=== PATIENT | male | born 1965 | race Hispanic/Latino ===

== ENCOUNTER 2017-08-20 06:16 | Day surgery (SDC) | payer OTHER ==
[2017-08-20 06:34] VITALS: BMI 33.0
[2017-08-20] MEDS ORDERED: Lactated Ringer's 1,000 ML IV ONE (07:10)
[2017-08-20] MEDS ORDERED: Lidocaine 2% Jelly (Uro-Jet) ONE (07:13)
[2017-08-20] MEDS ORDERED: Lidocaine 1% Inj (20ml) ONE (07:13)
[2017-08-20] MEDS ORDERED: Sodium Chloride 0.9% 20 ML IV ONE (07:13)
[2017-08-20] MEDS ORDERED: EPINEPHrine 1 mg/ml (1:1000) Inj ONE (07:13)
[2017-08-20] MEDS ORDERED: Lidocaine 2% Jelly (5 ml) TOP ONE (07:14)
--- NOTE | 2017-08-20 07:14 | CP.SDSHP ---
Same Day Surgery H & P - History Proposed Procedure: Flexible bronchoscopy - Previous Medical/Surgical History Cardiac: Hypertension Pulmonary: Smoking (former), Dyspnea, Other (ILD) Endocrine/Metabolic: Other (Low testosterone) Pain: 0. No Pain Previous Surgical History: Tonsillectomy - Allergies Allergies: Allergies No Known Allergies Allergy (Verified 05/06/14 22:00) - Physical Exam Vital Signs: Vital Signs 08/20/17 08/20/17 06:49 06:51 Temperature 98.9 F Pulse Rate 87 87 Respiratory 20 Rate Blood Pressure 151/83 H O2 Sat by Pulse 97 Oximetry Mental Status: Alert & Oriented x3 Neuro: WNL Heart: WNL Lungs: Other (diminished breath sounds) GI: Other (ventral hernia) - Impression Pt. Evaluated Today:Candidate for Anesthesia & Procedure: Yes - Date & Time Date: 08/20/17 Time: 07:15 Short Stay Discharge - Short Stay Discharge Admitting Diagnosis/Reason for Visit: J84.9 Disposition: HOME/ ROUTINE Referrals: FAMILY PROVIDER,NO [Primary Care Provider] -
[2017-08-20] MEDS ORDERED: Propofol 10 mg/ml Inj (20 ML) ONE (07:43)
[2017-08-20] MEDS ORDERED: Midazolam 2 MG/2 ML VIAL ONE (07:43)
[2017-08-20] MEDS ORDERED: Lidocaine 2% MPF (5 ml) Inj ONE (07:44)
[2017-08-20] MEDS ORDERED: Lidocaine 2% GEL TOP ONE (07:58)
[2017-08-20] MEDS ORDERED: Lidocaine 1% Inj (20ml) TP ONE (07:59)
[2017-08-20] MEDS ORDERED: Sodium Chloride 0.9% Inj (10mL) IV ONE (08:08)
[2017-08-20] MEDS ORDERED: EPINEPHrine 1 mg/ml (1:1000) Inj IV ONE (08:08)
[2017-08-20] MEDS ORDERED: Lactated Ringer's 1,000 ML IV SCH (08:45)
[2017-08-20 09:16] VITALS: RESP 18
--- NOTE | 2017-08-20 09:27 | RAD ---
HISTORY: Post lung biopsy COMPARISON: No prior. FINDINGS: LUNGS: Limited evaluation due to overlying soft tissue and suboptimal technique. No focal consolidation. Suggestion peripheral fibrotic changes. PLEURA: No significant pleural effusion identified, no pneumothorax apparent. CARDIOVASCULAR: Normal. OSSEOUS STRUCTURES: No significant abnormalities. VISUALIZED UPPER ABDOMEN: Normal. OTHER FINDINGS: None. IMPRESSION: Limited evaluation. No focal consolidation or pneumothorax. Suggestion of peripheral fibrotic changes.
[2017-08-20 09:59] VITALS: O2SAT 97
[2017-08-20 10:57] VITALS: BP 147/77; PULSE 68; TEMP 97.4
--- NOTE | 2017-08-20 11:04 | CP.SDSHP ---
Same Day Surgery H & P - Allergies Allergies: Allergies No Known Allergies Allergy (Verified 05/06/14 22:00) - Current Medications Current Medications: Home Medication List Medication Instructions Recorded Confirmed Type Acetaminophen [Tylenol 325mg tab] 650 mg PO ONCE PRN tab 08/20/17 Rx - Physical Exam Vital Signs: Vital Signs 08/20/17 08/20/17 08/20/17 06:49 06:51 08:25 Temperature 98.9 F 97.0 F L Pulse Rate 87 87 87 Respiratory 20 18 Rate Blood Pressure 151/83 H 143/73 O2 Sat by Pulse 97 96 Oximetry 08/20/17 08/20/17 08/20/17 08:40 08:55 09:10 Temperature 97.5 F L 97.7 F 98.0 F Pulse Rate 79 73 70 Respiratory 18 20 20 Rate Blood Pressure 126/74 111/73 119/79 O2 Sat by Pulse 97 98 96 Oximetry 08/20/17 08/20/17 08/20/17 09:25 09:45 09:57 Temperature 98.0 F 98.0 F 98.5 F Pulse Rate 88 67 69 Respiratory 20 20 18 Rate Blood Pressure 120/72 127/68 138/74 O2 Sat by Pulse 96 99 97 Oximetry 08/20/17 08/20/17 10:00 10:56 Temperature 97.4 F L Pulse Rate 68 Respiratory 18 Rate Blood Pressure 147/77 O2 Sat by Pulse 97 97 Oximetry Short Stay Discharge - Short Stay Discharge Admitting Diagnosis/Reason for Visit: J84.9 Disposition: HOME/ ROUTINE Additional Instructions (Diet, Activity): Call doctor's office Wednesday at 11 AM. Progress Note/Discharge Note with Instructions: Stable post bronchoscopy. For discharge to home. Followup in office next week.
--- NOTE | 2017-08-20 12:13 | CARD ---
APPROVED REPORT EKG Measurement Heart [id number] <Conclusion> Normal sinus rhythm Normal ECG
--- NOTE | 2017-08-20 12:14 | RAD ---
PROCEDURE: Intraoperative Fluoroscopy. HISTORY: BRONCHOSCOPY (RLL) FINDINGS: Fluoroscopic assistance was provided for bronchoscopic procedure.
== END 2017-08-20 11:28 | disposition home or self-care (01) ==
LOC: H.OPSURG 06:16
PROVIDERS: ATTEND Internal Medicine Pulmonary Disease
DX: J84.9 Interstitial pulmonary disease, unspecified (principal); I10 Essential (primary) hypertension
CPT/HCPCS: 31622; 71010; 87015; 87070; 87101; 87116; 87181; 87206; 88104; 88305; 93005; J0171; J2250; J2704; J3010; J7120

== ENCOUNTER 2018-11-07 14:53 | Emergency (ER) | payer OTHER ==
[2018-11-07 14:53] VITALS: BMI 33.0
[2018-11-07 15:07] VITALS: RESP 18; TEMP 98.6
--- NOTE | 2018-11-07 15:19 | CARD ---
APPROVED REPORT Date of service: 11/07/2018 EKG Measurement Heart [id number] <Conclusion> Normal sinus rhythm Normal ECG
[2018-11-07] MEDS ORDERED: Albuterol-Ipratrop 3 mg / 0.5 (3 ml) UD INH STA ×2 (15:25→16:14)
--- NOTE | 2018-11-07 15:30 | ED PDOC ---
HPI: SOB/CHF/COPD Time Seen by Provider: 11/07/18 15:18 Chief Complaint (Nursing): Chest Pain Chief Complaint (Provider): Chest Pain History Per: Patient History/Exam Limitations: no limitations Onset/Duration Of Symptoms: Days (x3) Current Symptoms Are (Timing): Still Present Additional Complaint(s): 53 year old male with pmHx of anxiet and HTN, presents to ED with a complaint of right-sided chest pain associated with shortness of breath and wheezing for 3 days. Patient has been using Mucinex for wheeze with minimal alleviation. He denies radiation of pain to bilateral arms, numbness, weakness, or receiving flu shot this year. PCP: Dr. Chris Milian Past Medical History Reviewed: Historical Data, Nursing Documentation, Vital Signs Vital Signs: Last Vital Signs Temp 98.6 F 11/07/18 15:06 Pulse 83 11/07/18 15:06 Resp 18 11/07/18 15:06 BP 100/53 L 11/07/18 15:06 Pulse Ox 99 11/07/18 15:06 - Medical History PMH: Anxiety, HTN Denies: Chronic Kidney Disease - Family History Family History: States: Unknown Family Hx - Social History Current smoker - smoking cessation education provided: Yes (vapes) - Home Medications Home Medications: Ambulatory Orders Medication Instructions Recorded ALPRAZolam [Xanax] 1 mg PO DAILY 08/20/17 Acetaminophen [Tylenol 325mg tab] 650 mg PO ONCE PRN tab 08/20/17 amLODIPine [Norvasc] 10 mg PO DAILY 08/20/17 - Allergies Allergies/Adverse Reactions: Allergies Allergy/AdvReac Type Severity Reaction Status Date / Time No Known Allergies Allergy Verified 05/06/14 22:00 Review of Systems ROS Statement: Except As Marked, All Systems Reviewed And Found Negative Cardiovascular: Positive for: Chest Pain (right-sided) Respiratory: Positive for: Shortness of Breath, Pleuritic Pain, Wheezing Musculoskeletal: Negative for: Arm Pain Neurological: Negative for: Weakness, Numbness Physical Exam - Reviewed Nursing Documentation Reviewed: Yes Vital Signs Reviewed: Yes - Physical Exam Appears: Positive for: No Acute Distress, Uncomfortable Head Exam: Positive for: ATRAUMATIC, NORMAL INSPECTION, NORMOCEPHALIC Skin: Positive for: Normal Color Eye Exam: Positive for: Normal appearance, EOMI, PERRL ENT: Positive for: Normal ENT Inspection Neck: Positive for: Normal, Painless ROM, Supple Cardiovascular/Chest: Positive for: Regular Rate, Rhythm Respiratory: Positive for: Decreased Breath Sounds (and air entry. unable to take deep inspiration secondary to pain). Negative for: Crackles, Wheezing, Respiratory Distress Extremity: Positive for: Normal ROM (upper/lower). Negative for: Pedal Edema, Calf Tenderness Neurologic/Psych: Positive for: Alert, Oriented. Negative for: Motor/Sensory Deficits - Laboratory Results Result Diagrams: 11/07/18 15:47 11/07/18 15:47 - ECG ECG: Positive for: Interpreted By Me ECG Rhythm: Positive for: Normal QRS, Normal ST Segment, Sinus Rhythm Rate: 91 O2 Sat by Pulse Oximetry: 99 (RA) Pulse Ox Interpretation: Normal Medical Decision Making Medical Decision Making: Time: 152 Initial Plan: * EKG * Labs with troponin * Duoneb 3ml INH * Toradol 30mg IVP Time: 1613 --CXR FINDINGS: LUNGS: Dense consolidation right upper lobe consistent with pneumonia. Significant increased and coarsened interstitial markings most pronounced in the the mid to lower lung barbosa consistent with underlying fibrosis however superimposed patchy bilateral infiltrates suspected. PLEURA: No significant pleural effusion identified. No pneumothorax apparent. CARDIOVASCULAR: No significant aortic atherosclerotic calcification visualized. Cardiomegaly. OSSEOUS STRUCTURES: No significant abnormalities. VISUALIZED UPPER ABDOMEN: Normal. OTHER FINDINGS: None. IMPRESSION: Dense consolidation right upper lobe consistent with pneumonia. Significant coarsened increased coarsened interstitial markings most pronounced in the mid to lower lung barbosa consistent with underlying fibrosis however superimposed patchy bilateral infiltrates suspected. Time: 164 --CXR findings discussed with patient. Upon provider reevaluation, patient is medically stable and tolerates PO well. First dose of Levaquin given in ED along with Rx for discharge. Patient is out of window for Tamiflu, thus, influenza swab not ordered. Advised to follow up with PCP in 48 hours. Counseling was provided and all questions were answered regarding diagnosis. There is agreement to discharge plan. Return to ED if patient cannot tolerate PO or if new symptoms develop. Clinical Impression: Pneumonia Scribe Attestation: Documented by Kylah Herman, acting as a scribe for Yani Mallory MD. Provider Scribe Attestation: All medical record entries made by the Scribe were at my direction and personally dictated by me. I have reviewed the chart and agree that the record accurately reflects my personal performance of the history, physical exam, medical decision making, and the department course for this patient. I have also personally directed, reviewed, and agree with the discharge instructions and disposition. Disposition - Disposition Disposition Time: 16:49 Forms: [employer] (Indonesian)
[2018-11-07 15:50] LABS: BASO # 0.1 K/uL (0.0-0.2); BASO % 0.4 % (0.0-2.0); EOS % 0.1 % (0.0-4.0); HEMOGLOBIN 13.2 g/dL (12.0-18.0); LYMPH # 2.1 K/uL (1.0-4.3); LYMPH % 14.1 % (20.0-40.0); MEAN CELL VOLUME 96.5 fl (80.0-94.0); MEAN CORPUSCULAR HEMOGLOBIN 32.2 pg (27.0-31.0); MEAN CORPUSCULAR HGB CONC 33.4 g/dL (33.0-37.0); MEAN PLATELET VOLUME 7.2 fl (7.2-11.7); MONO # 1.6 K/uL (0.0-0.8); MONO % 10.9 % (0.0-10.0); NEUT # 11.2 K/uL (1.8-7.0); NEUT % 74.5 % (50.0-75.0); RBC 4.11 Mil/uL (4.40-5.90); RED CELL DISTRIBUTION WIDTH 14.1 % (11.5-14.5)
[2018-11-07] MEDS ORDERED: Albuterol-Ipratrop 3 mg / 0.5 (3 ml) UD ONE ×2 (15:57→16:55)
[2018-11-07 16:09] LABS: BLOOD UREA NITROGEN 24 mg/dl (9-20); GFR NON-AFRICAN AMERICAN > 60
--- NOTE | 2018-11-07 16:16 | RAD ---
Date of service: 11/07/2018 HISTORY: cough COMPARISON: Comparison chest 08/20/2017. Comparison also made with CT chest . TECHNIQUE: Chest PA and lateral FINDINGS: LUNGS: Dense consolidation right upper lobe consistent with pneumonia. Significant increased and coarsened interstitial markings most pronounced in the the mid to lower lung barbosa consistent with underlying fibrosis however superimposed patchy bilateral infiltrates suspected. PLEURA: No significant pleural effusion identified. No pneumothorax apparent. CARDIOVASCULAR: No significant aortic atherosclerotic calcification visualized. Cardiomegaly. OSSEOUS STRUCTURES: No significant abnormalities. VISUALIZED UPPER ABDOMEN: Normal. OTHER FINDINGS: None. IMPRESSION: Dense consolidation right upper lobe consistent with pneumonia. Significant coarsened increased coarsened interstitial markings most pronounced in the mid to lower lung barbosa consistent with underlying fibrosis however superimposed patchy bilateral infiltrates suspected.
[2018-11-07] MEDS ORDERED: levoFLOXacin 750 MG TAB PO STA (16:29)
[2018-11-07] MEDS ORDERED: Sodium Chloride 0.9% 1,000 ML IV STA (16:30)
[2018-11-07 17:01] LABS: VENOUS BLOOD GAS BASE EXCESS 3.9 mmol/L (0.0-2.0); VENOUS BLOOD GAS PCO2 51 mmHg (40-60); VENOUS BLOOD GAS PO2 38 mm/Hg (30-55); VENOUS BLOOD PH 7.38 (7.32-7.43)
[2018-11-07 19:16] VITALS: BP 111/60; PULSE 84; O2SAT 98
== END 2018-11-07 16:38 | disposition home or self-care (01) ==
LOC: H.ER 14:53
DX: J18.9 Pneumonia, unspecified organism (principal); I10 Essential (primary) hypertension
CPT/HCPCS: 71046; 80048; 82803; 84484; 85025; 87040; 87804; 93005; 94640; 96361; 96374; 99284; J1885; J7030